=== PATIENT | female | born 1990 | race Caucasian/White ===

== ENCOUNTER 2020-06-24 16:11 | Outpatient (REF) | payer OTHER, SELFPAY | END 2020-06-24 16:12 | disposition home or self-care (01) | LOC: HO.LAB 16:11 | PROVIDERS: PCP Internal Medicine; Visit Provider Internal Medicine | DX: Z20.828 Contact with and (suspected) exposure to other viral communicable diseases (principal) | CPT/HCPCS: U0003 ==

== ENCOUNTER 2020-09-19 16:47 | Outpatient (REF) | payer OTHER, SELFPAY | END 2020-09-19 16:48 | disposition home or self-care (01) | LOC: HO.LAB 16:47 | PROVIDERS: Visit Provider Internal Medicine | DX: Z20.822 Contact with and (suspected) exposure to COVID-19 (principal) | CPT/HCPCS: 36415; C9803; U0003 ==

== ENCOUNTER 2020-10-14 15:16 | Outpatient (REF) | payer OTHER, SELFPAY | END 2020-10-14 15:17 | disposition home or self-care (01) | LOC: HO.LAB 15:16 | PROVIDERS: Visit Provider Internal Medicine | DX: Z20.822 Contact with and (suspected) exposure to COVID-19 (principal) | CPT/HCPCS: 36415; C9803; U0003; U0005 ==

== ENCOUNTER 2020-10-26 13:02 | Outpatient (REF) | payer OTHER, SELFPAY | END 2020-10-26 13:03 | disposition home or self-care (01) | LOC: HO.LAB 13:02 | PROVIDERS: Visit Provider Internal Medicine | DX: Z20.822 Contact with and (suspected) exposure to COVID-19 (principal) | CPT/HCPCS: 36415; C9803; U0003; U0005 ==

== ENCOUNTER 2021-03-21 11:36 | Outpatient (REF) | payer OTHER, SELFPAY | END 2021-03-21 11:37 | disposition home or self-care (01) | LOC: HO.LAB 11:36 | PROVIDERS: PCP Internal Medicine; Visit Provider Internal Medicine | DX: Z20.822 Contact with and (suspected) exposure to COVID-19 (principal) | CPT/HCPCS: C9803; U0003; U0005 ==

== ENCOUNTER 2021-04-06 12:59 | Emergency (ER) | payer OTHER, SELFPAY ==
[2021-04-06 13:26] VITALS: BP 111/59; PULSE 81; RESP 17; TEMP 37; O2SAT 98; BMI 26.4
--- NOTE | 2021-04-06 16:46 | ED.SKABFB ---
HPI - Skin/Abscess/Foreign Bdy General Chief complaint: Skin/Abscess/Foreign Body Stated complaint: arm abcess Time Seen by Provider: 04/06/21 16:40 Source: patient Mode of arrival: ambulatory History of Present Illness HPI narrative: 30-year-old female no significant past medical history presenting to the ED complaining of abscess to left upper arm x4 days. Denies drainage from area. Reports tried to drain at home yesterday without resolution. Denies fever, chills, numbness, tingling, IVDA complaint: abscess/boil Related Data Previous Rx's Medication Instructions Recorded cephalexin 500 mg capsule 500 mg PO QID 7 Days #28 cap 04/06/21 doxycycline hyclate 100 mg tablet 100 mg PO BID 7 Days #14 tab 04/06/21 Allergies Allergy/AdvReac Type Severity Reaction Status Date / Time No Known Allergies Allergy Mild NOT Unverified 05/12/20 17:20 APPLICABLE seasonal allergies Allergy Unknown Uncoded 05/17/14 00:00 Review of Systems Review of Systems: Constitutional: No Fever, No Chills Musculoskeletal: + joint pain Skin: + Skin Lesions, No rash Neuro: No Weakness, No Numbness, No Paresthesias Yes all other systems are reviewed and are negative PMFSH Past Medical History Attestation statement: The following information was validated with the patient. Medical History (Updated 04/06/21 @ 17:25 by MICHELLE Newell) IUD (intrauterine device) in place Seasonal allergies Social History Social History Advance Directives: No Advance Directives Information Provided: No Patient : No Physical Exam Vital Signs: Vital Signs: Last Vital Signs Temp 98.6 F 04/06/21 13:26 Pulse 81 04/06/21 13:26 Resp 17 04/06/21 13:26 BP 111/59 L 04/06/21 13:26 Pulse Ox 98 04/06/21 13:26 Body Mass Index 26.4 Const: General: cooperative, healthy appearing and no acute distress Orientation/consciousness: patient oriented x3 Limitations: no limitations HENMT: Head: Yes normal to inspection Ears: hearing grossly normal bilaterally General nose exam: Normal external nose present Face and sinus: Yes normal facial exam Eyes: General: appearance normal, both eyes and all related structures EOM: EOMs intact bilaterally Neck: Neck: Yes normal visual inspection Resp: Effort & Inspection: normal respiratory effort and no respiratory distress Cardio: Rate: regular rate Peripheral pulses: radial pulses present Skin: Other: Small hard indurated abscess noted to left distal humerus with slight central fluctuance. Warm to touch. + surrounding cellulitis Rashes: no rashes Neuro: General: patient oriented x3 Gait exam (Neuro): Normal gait present Extrem: General: Yes normal to inspection MDM - Skin/Abscess/Foreign Bdy MDM Narrative Medical decision making narrative: 30-year-old female no significant past medical history presenting to the ED complaining of abscess to left upper arm x4 days. On exam VSS, any-appearing, physical exam as above. Will I & D abscess in give 1st dose of p.o. antibiotics in the ED Medical Records Attestation: I reviewed the patient's medical records. Procedures Abscess I/D Site: upper extremity Side (if applicable): left Local Anesthetic: lidocaine 1% Amount of anesthesia used (mL): 3 Technique: incised with blade Sent for culture/gram staining?: No Irrigation: No Packing used?: none Discharge Plan Discharge Clinical Impression: Abscess of skin or subcutaneous tissue Qualifiers: Site of cutaneous abscess: extremity Site of cutaneous abscess of extremity: upper extremity Laterality: left Qualified Code(s): L02.414 - Cutaneous abscess of left upper limb Patient Disposition: Home, Self-Care Instructions: Abscess (ED), Abscess Follow-up (ED) Additional Instructions: Doxycycline and Keflex are antibiotics, please take as prescribed It is important for you to be re-evaluated in 2 days If area is growing, has pus drainage, you have fever please return to the Prescriptions: New cephalexin 500 mg capsule 500 mg PO QID 7 Days Qty: 28 RF: 0 doxycycline hyclate 100 mg tablet 100 mg PO BID 7 Days Qty: 14 RF: 0 Referrals: Imelda Trevino DO [Primary Care Provider] - 2 days (For wound check)
[2021-04-06] MEDS: Lidocaine HCl 1 % MPF 5 ML VIAL SUBCUT (16:59)
[2021-04-06] MEDS: cephALEXin 500 MG CAPSULE PO (16:59)
== END 2021-04-06 17:42 | disposition home or self-care (01) ==
PROVIDERS: Emergency Provider Emergency Medicine Emergency Medical Services; PCP Internal Medicine
DX: L02.414 Cutaneous abscess of left upper limb (principal)
CPT/HCPCS: 10060; 99283; 99284; 99285

== ENCOUNTER 2021-06-07 18:47 | Emergency (ER) | payer OTHER, SELFPAY ==
--- NOTE | ~2021-06-07 | XR_ITS ---
EXAMINATION: XR CHEST CLINICAL INFORMATION: Cough. COMPARISON: Most recent chest radiograph dated 03/24/2012. TECHNIQUE: Frontal view of the chest was obtained. FINDINGS: The lungs are clear. The cardiomediastinal silhouette is normal in size. There is no pleural effusion or pneumothorax. No acute osseous abnormality. XR/XR chest 1V IMPRESSION: No acute cardiopulmonary findings.
[2021-06-07 19:42] VITALS: BP 106/56; PULSE 81; RESP 16; TEMP 36.5; O2SAT 99; BMI 27.0
[2021-06-07 20:13] LABS: Strep A Nucleic Acid Negative (Negative)
[2021-06-07 20:23] LABS: COVID-19 Test Negative (Negative)
--- NOTE | 2021-06-07 22:21 | ED.URI ---
HPI - URI/Sore Throat General Chief Complaint: Upper Respiratory Symptoms Stated Complaint: sore throat, headache Time Seen by Provider: 06/07/21 21:21 Source: patient Mode of arrival: ambulatory History of Present Illness HPI Narrative: 30-year-old female with a past medical history of seasonal allergies presenting to the ED complaining of sore throat, dry cough, and myalgias x4 days. 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 Denies known exposure to COVID-19. Denies fever, chills, ear pain, SOB, CP, recent travel, LE edema, calf pain MD elicited complaint: cough and rhinorrhea Related Data Previous Rx's Medication Instructions Recorded cephalexin 500 mg capsule 500 mg PO QID 7 Days #28 cap 04/06/21 doxycycline hyclate 100 mg tablet 100 mg PO BID 7 Days #14 tab 04/06/21 acetaminophen 500 mg tablet 500 mg PO Q6H PRN #20 tab 06/07/21 (Tylenol Extra Strength) benzonatate 100 mg capsule 100 mg PO TID PRN #14 cap 06/07/21 (Tessalon Perles) fluticasone propionate 50 2 spray INTRANASAL DAILY #16 g 06/07/21 mcg/actuation nasal spray,suspension (Flonase Allergy Relief) Allergies Allergy/AdvReac Type Severity Reaction Status Date / Time No Known Allergies Allergy Mild NOT Unverified 05/12/20 17:20 APPLICABLE seasonal allergies Allergy Unknown Uncoded 05/17/14 00:00 Review of Systems Review of Systems: Constitutional: No Fever, No Chills, No Fatigue, + Malaise ENT/Mouth: No Ear Pain, + Nasal Congestion, No Sinus Pain, No Hoarseness, +sore throat, +Rhinorrhea, No Swallowing Difficulty Eyes: No Eye Pain, No Swelling, No Redness Cardiovascular: No Chest Pain, No SOB, No Palpitations Respiratory: + Cough, No Sputum, No Wheezing, No Dyspnea Gastrointestinal: No Nausea, No Vomiting, No Abdominal pain Genitourinary: No irregular bleeding, No Dysuria, No Urinary Frequency, No Hematuria,No Flank Pain Musculoskeletal: No joint pain, + Myalgias, No Joint Swelling Skin: No Skin Lesions, No rash Neuro: No Weakness, No Numbness, No Paresthesias, No Headache Yes all other systems are reviewed and are negative [facility] Past Medical History Attestation statement: The following information was validated with the patient. Medical History (Updated 06/07/21 @ 22:26 by MICHELLE Newell) IUD (intrauterine device) in place Seasonal allergies Social History Social History Advance Directives: No Advance Directives Information Provided: Yes Patient : No Physical Exam Vital Signs: Vital Signs: Last Vital Signs Temp 97.7 F 06/07/21 19:42 Pulse 81 06/07/21 19:42 Resp 16 06/07/21 19:42 BP 106/56 L 06/07/21 19:42 Pulse Ox 99 06/07/21 19:42 Body Mass Index 27.0 Const: General: cooperative and healthy appearing Orientation/consciousness: patient oriented x3 Limitations: no limitations HENMT: Head: Yes normal to inspection and Yes normocephalic Ears: hearing grossly normal bilaterally, external ears normal and TM's normal bilaterally General nose exam: Normal external nose present and Normal nares present Face and sinus: Yes normal facial exam Mouth: Normal oral and palatal mucosa present Throat: Yes posterior oropharynx normal, Yes tonsils normal, Yes uvula midline, No abnormal tonsil, No peritonsillar mass and No uvular edema Eyes: General: appearance normal, both eyes and all related structures EOM: EOMs intact bilaterally Neck: Neck: Yes normal visual inspection, Yes no lymphadenopathy and Yes no meningeal signs Resp: Effort & Inspection: normal respiratory effort Auscultation: clear to auscultation bilaterally, no rales and no wheezes Cardio: Rate: regular rate Heart sounds: S1 normal heart sound present and S2 normal heart sound present GI: Inspection: Yes normal to inspection Palpation (GI): Soft to palpation, nontender and no guarding Skin: Rashes: no rashes Wounds: no wounds Neuro: General: patient oriented x3, tone normal, moves all extremities and no meningeal signs Gait exam (Neuro): Normal gait present Extrem: General: Yes normal to inspection, Yes no pedal edema and Yes no calf tenderness Course Course Course Narrative: -COVID-19 and rapid strep negative XR chest 1V IMPRESSION: No acute cardiopulmonary findings. >> results discussed with patient including worrisome signs and symptoms and strict return precautions. MDM - URI/Sore Throat MDM Narrative Medical decision making narrative: 30-year-old female with a past medical history of seasonal allergies presenting to the ED complaining of sore throat, dry cough, and myalgias x4 days. On exam VSS, NAD/well-appearing, lungs CTA, exam nonfocal. Concern for viral syndrome/COVID-19. Low concern for ACS, PE, or pneumonia Plan: COVID-19 testing, rapid strep, CXR Medical Records Attestation: I reviewed the patient's medical records. Lab Data Attestation: I reviewed the patient's lab results. Labs: Lab Results 06/07/21 06/07/21 Range/Units 19:56 19:56 COVID-19 ([facility]) Negative (Negative) COVID-19 Clin Com See Note S. pyogenes GrpA BRITNEY Negative (Negative) Discharge Plan Discharge Clinical Impression: Upper respiratory infection Qualifiers: URI type: unspecified viral URI Qualified Code(s): J06.9 - Acute upper respiratory infection, unspecified Patient Disposition: Home, Self-Care Instructions: Viral Syndrome (ED) Additional Instructions: You tested negative for COVID-19, and strep throat Her chest x-ray was unremarkable Tessalon Perles for cough Flonase is a nasal decongestion Rest, stay hydrated, take Tylenol /Motrin Follow up with her doctor Return to the ED if symptoms persist or worsen Prescriptions: New fluticasone propionate [Flonase Allergy Relief] 50 mcg/actuation spray,suspension 2 spray intranasal DAILY Qty: 16 RF: 0 benzonatate [Tessalon Perles] 100 mg capsule 100 mg PO TID PRN (Reason: cough) Qty: 14 RF: 0 acetaminophen [Tylenol Extra Strength] 500 mg tablet 500 mg PO Q6H PRN (Reason: pain or fever) Qty: 20 RF: 0 No Action cephalexin 500 mg capsule 500 mg PO QID 7 Days Qty: 28 RF: 0 doxycycline hyclate 100 mg tablet 100 mg PO BID 7 Days Qty: 14 RF: 0 Referrals: Physician,Unknown J [Primary Care Provider] - 2 days
== END 2021-06-07 22:37 | disposition home or self-care (01) ==
PROVIDERS: Emergency Provider Emergency Medicine
DX: J06.9 Acute upper respiratory infection, unspecified (principal); Z20.822 Contact with and (suspected) exposure to COVID-19
CPT/HCPCS: 36415; 71045; 87635; 87651; 99283

== ENCOUNTER 2021-06-29 12:11 | Outpatient (REF) | payer OTHER, SELFPAY ==
[2021-06-29 12:46] LABS: COVID-19 Test Negative (Negative)
== END 2021-06-29 12:12 | disposition home or self-care (01) ==
LOC: HO.LAB 12:11
PROVIDERS: Visit Provider Internal Medicine
DX: Z20.822 Contact with and (suspected) exposure to COVID-19 (principal)
CPT/HCPCS: 36415; 87635; C9803